=== PATIENT | female | born 1955 | race Caucasian/White ===

== ENCOUNTER → 2016-08-23 | Outpatient (CLI) | payer BC ==
[~2016-08-23] MED LIST: CALCIUM 500 + D1 TAB PO; CERTAGEN PO; EXFORGE; FISH OIL 1,0001 CAP PO; HAIR; VIT E PO; VITAMIN; VITAMIN B6
--- NOTE | ~2016-08-23 | US6 ---
[facility] A Service of [facility] [place] RADIOLOGY TEXT RESULTS PATIENT: CLINT MEDLEY LOCATION: SGUS : 57 UNIT #: [id number] AGE: [address]: PERCY JARAMILLO MD SEX: F ORDER DR: [id number] [address] [address] [id number] O MR#: [id number] Acc #: [id number] NAME: CLINT MEDLEY : 1955 SEX: F STUDY DATE/TIME: 08/23/2016 8:13 UNIT: SGUS ROOM: STUDY DESCRIPTION: US Abdominal Limited Attending Physician: Percy Jaramillo M.D. Referring Physician: Percy Jaramillo M.D. Ordering Physician: Percy Jaramillo M.D. Primary Care Physician: Joey Loco M.D. MEDICAL IMAGING REPORT This report is preliminary unless electronic signature is present. EXAM Right upper quadrant ultrasound. DATE OF EXAM 08/23/2016 HISTORY Right-side abdominal pain, back pain and right flank pain for 10 days. Cholecystectomy in 2012. FINDINGS The liver is homogeneous in echotexture and demonstrates no cystic or solid mass lesions. The intrahepatic bile ducts are not dilated. The gallbladder surgically absent as per patient history. The common duct measures 9 mm. No obstructing mass or calculus is seen. The pancreas and right kidney are normal. IMPRESSION Post cholecystectomy dilatation of the common bile duct to 9 mm. No obstructing mass or calculus is seen. Dictated by... Efren Pollock M.D. THIS IS AN ELECTRONICALLY VERIFIED REPORT Efren Pollock M.D. at 08/26/2016 10:35 AM SHIRA/omari TD: 08/23/2016 19:00 JOB #: [id number] [facility] A Service of [facility] [place] RADIOLOGY TEXT RESULTS PATIENT: CLINT MEDLEY LOCATION: SGUS : 57 UNIT #: [id number] AGE: [address]: PERCY JARAMILLO MD SEX: F ORDER DR: MEDICAL IMAGING REPORT
== END | disposition home or self-care (01) ==
LOC: SGUS 07:58
DX: R10.9 Unspecified abdominal pain (principal); Z90.49 Acquired absence of other specified parts of digestive tract; K83.8 Other specified diseases of biliary tract
CPT/HCPCS: 76705

== ENCOUNTER 2017-02-16 10:56 | Emergency (ER) | payer BC ==
[~2017-02-16] VITALS: Ht 162.6 cm; Wt 86.2 kg
--- NOTE | ~2017-02-16 | CR141 ---
[facility] A Service of [facility] RADIOLOGY TEXT RESULTS PATIENT: CLINT MEDLEY LOCATION: SED : 57 UNIT #: [id number] AGE: [address]: DARREN MADDEN SEX: F ORDER DR: [id number] [place] [id number] E MR#: [id number] Acc #: [id number] NAME: CLINT MEDLEY : 1955 SEX: F STUDY DATE/TIME: 02/16/2017 12:19 UNIT: SED ROOM: STUDY DESCRIPTION: CR Hand Min 3 Views Lt Attending Physician: Michael De Leon Ordering Physician: Michael De Leon Primary Care Physician: Joey Loco M.D. MEDICAL IMAGING REPORT This report is preliminary unless electronic signature is present. EXAM Left hand INDICATION Left hand trauma. Fall. FINDINGS 3 views of the left hand without comparison. There is a comminuted fracture involving the mid fourth metacarpal. There is a free fracture fragment measuring 2.3 cm. This is minimally displaced in a superior direction. There is extensive soft tissue swelling over the dorsum of the hand. Articulation of the carpometacarpal and metacarpophalangeal joints are within normal limits. IMPRESSION Minimally displaced and comminuted fracture of the mid fourth metacarpal. Dictated by... Luis Gallegos M.D. THIS IS AN ELECTRONICALLY VERIFIED REPORT Luis Gallegos M.D. at 02/17/2017 3:43 PM MICHAEL/rahul TD: 02/17/2017 12:44 JOB #: [id number] MEDICAL IMAGING REPORT Page 1 of 1
--- NOTE | ~2017-02-16 | CR150 ---
[facility] A Service of [facility] RADIOLOGY TEXT RESULTS PATIENT: CLINT MEDLEY LOCATION: SED : 57 UNIT #: [id number] AGE: [address]: DARREN MADDEN SEX: F ORDER DR: [id number] [place] [id number] E MR#: [id number] Acc #: [id number] NAME: CLINT MEDLEY : 1955 SEX: F STUDY DATE/TIME: 02/16/2017 12:19 UNIT: SED ROOM: STUDY DESCRIPTION: CR Hip Min 2 Views Lt Attending Physician: Michael De Leon Ordering Physician: Michael De Leon Primary Care Physician: Joey Loco M.D. MEDICAL IMAGING REPORT This report is preliminary unless electronic signature is present. EXAM Left hip INDICATIONS Trauma. Left hip pain. Fall. FINDINGS AP view of the pelvis and frog-leg lateral view of left hip without comparison. There is no acute fracture or dislocation. The hips are symmetric bilaterally. IMPRESSION Negative pelvis and left hip radiograph. Dictated by... Luis Gallegos M.D. THIS IS AN ELECTRONICALLY VERIFIED REPORT Luis Gallegos M.D. at 02/17/2017 3:43 PM RPKecia/rahul TD: 02/17/2017 12:43 JOB #: [id number] MEDICAL IMAGING REPORT Page 1 of 1
--- NOTE | ~2017-02-16 | CT101 ---
[facility] A Service [facility] RADIOLOGY TEXT RESULTS PATIENT: CLINT MEDLEY LOCATION: SED : 57 UNIT #: [id number] AGE: [address]: DARREN MADDEN SEX: F ORDER DR: [id number] [place] [id number] E MR#: [id number] Acc #: [id number] NAME: CLINT MEDLEY : 1955 SEX: F STUDY DATE/TIME: 02/16/2017 12:19 UNIT: SED ROOM: STUDY DESCRIPTION: CT Maxillofacial Area Wo Cont Attending Physician: Michael De Leon Ordering Physician: Michael De Leon Primary Care Physician: Joey Loco M.D. MEDICAL IMAGING REPORT This report is preliminary unless electronic signature is present. EXAM Max face CT INDICATION Fall. Facial pain. Pain and bruising around the left eye. TECHNIQUE Maxillofacial CT without contrast. Coronal reconstructions were obtained. This CT exam was performed with one or more of the following radiation dose reduction techniques: Automatic exposure control, adjustment of mA and/or kV according to patient size and iterative reconstruction. COMPARISON None available. FINDINGS There is some soft tissue swelling overlying the left orbit. No foreign body. No acute osseous abnormalities. There is no fracture. Left globe is intact. No foreign body. Paranasal sinuses are clear. IMPRESSION Soft tissue swelling over the left orbit. There is no associated fracture. The left globe is normal. Dictated by... Luis Gallegos M.D. THIS IS AN ELECTRONICALLY VERIFIED REPORT Luis Gallegos M.D. at 02/17/2017 11:49 AM [facility] A Service [facility] RADIOLOGY TEXT RESULTS PATIENT: CLINT MEDLEY LOCATION: SED : 57 UNIT #: [id number] AGE: [address]: DARREN MADDEN SEX: F ORDER DR: Dave TD: 02/17/2017 11:37 JOB #: [id number] MEDICAL IMAGING REPORT Page 1 of 1
== END 2017-02-16 13:28 | disposition home or self-care (01) ==
LOC: SED 10:56
DX: S62.325A Displaced fracture of shaft of fourth metacarpal bone, left hand, initial encounter for closed fracture (principal); S00.83XA Contusion of other part of head, initial encounter; S70.02XA Contusion of left hip, initial encounter; I10 Essential (primary) hypertension; Z23 Encounter for immunization; W01.0XXA Fall on same level from slipping, tripping and stumbling without subsequent striking against object, initial encounter; Y92.009 Unspecified place in unspecified non-institutional (private) residence as the place of occurrence of the external cause
CPT/HCPCS: 29125; 70486; 73130; 73502; 90471; 90715; 99284